=== PATIENT | male | born 2000 | race Caucasian/White ===

== ENCOUNTER 2024-12-13 04:19 | Emergency (ER) | payer BC ==
[~2024-12-13] VITALS: Ht 188 cm; Wt 120.9 kg
[2024-12-13 05:12] LABS: BASO % 0.4 % (0.0-1.0); EOS # 0.1 10^3/uL (0.0-0.5); EOS % 1.1 % (0.0-3.0); HEMATOCRIT 43.4 % (42.0-52.0); HEMOGLOBIN 15.2 g/dl (13.5-17.5); LYMPH # 2.6 10^3/uL (1.5-5.0); LYMPH % 29.2 % (24.0-44.0); MEAN CORPUSCULAR HEMOGLOBIN 29.7 pg (27.0-33.0); MEAN CORPUSCULAR VOLUME 84.8 fl (80.0-96.0); MONO # 0.9 10^3/uL (0.0-0.8); MONO % 9.4 % (2.0-8.0); NEUTROPHILS # 5.4 10^3/uL (1.5-8.5); NEUTROPHILS % 59.7 % (36.0-66.0); PLATELET COUNT, AUTOMATED 270 10^3/uL (150-450); RED BLOOD COUNT 5.12 10^6/uL (4.30-6.10)
[2024-12-13 05:31] LABS: CK-MB VALUE MASS < 1.0 NG/ML (<3.6)
[2024-12-13 05:32] LABS: BLOOD UREA NITROGEN 11 MG/DL (9-23); CALCIUM LEVEL 9.6 MG/DL (8.5-10.1); CARBON DIOXIDE LEVEL 27 MMOL/L (20-31); CHLORIDE LEVEL 105 MMOL/L (98-107); CREATININE FOR GFR 0.94 MG/DL (0.70-1.30); GLOMERULAR FILTRATION RATE > 60.0 (>60); GLUCOSE, FASTING 100 MG/DL (60-100); POTASSIUM SERUM 3.9 MMOL/L (3.5-5.1); SODIUM LEVEL 143 MMOL/L (136-145)
[2024-12-13 05:35] LABS: CPK CREATINE PHOSPHOKINASE 255 U/L (46-171); MB/CK RELATIVE INDEX 0.39 (< OR =4)
[2024-12-13 06:41] LABS: CK-MB VALUE MASS < 1.0 NG/ML (<3.6)
[2024-12-13 06:43] LABS: CPK CREATINE PHOSPHOKINASE 250 U/L (46-171)
[2024-12-13 07:11] VITALS: TEMP 98
[2024-12-13 08:45] VITALS: BP 116/75
[2024-12-13 08:49] VITALS: O2SAT 97
== END 2024-12-13 08:58 | disposition home or self-care (01) ==
LOC: M ED 04:19
DX: R07.9 Chest pain, unspecified (principal); J45.909 Unspecified asthma, uncomplicated